=== PATIENT | male | born 1955 | race Caucasian/White ===

== ENCOUNTER 2017-04-18 15:28 | Emergency (ER) | payer OTHER ==
--- NOTE | 2017-04-18 16:10 | RAD ---
4 VIEWS RIGHT KNEE: Date: 04/18/17 COMPARISON: None. HISTORY: Right knee pain. FINDINGS: Four views of the right knee show no evidence of acute fracture or dislocation. No knee effusion is s een. No significant degenerative change is present. IMPRESSION: No evidence of acute osseous abnormality of the right knee. POS: [facility]
== END 2017-04-18 17:15 | disposition home or self-care (01) ==
LOC: ERS 15:28
DX: S76.111A Strain of right quadriceps muscle, fascia and tendon, initial encounter (principal); E78.5 Hyperlipidemia, unspecified; W01.0XXA Fall on same level from slipping, tripping and stumbling without subsequent striking against object, initial encounter